=== PATIENT | female | born 1980 | race Caucasian/White ===

== ENCOUNTER 2017-05-06 11:51 | Emergency (ER) | payer OTHER, MEDICAID ==
[~2017-05-06] VITALS: Ht 152.4 cm; Wt 66.2 kg
[~2017-05-06 11:51] MED LIST: AUGMENTIN 500-1 EACH PO; CIPROFLOXIN HC2.5 M1 OTIC; FISH OIL 1,001000 M2 PO; VITAMIN D1000 UNI1 PO
[2017-05-06] MEDS ORDERED: ADVAIR 500-501 EACH INH (12:05)
[2017-05-06] MEDS ORDERED: FLONASE 0.05%50 MCG NASAL (12:06)
[2017-05-06] MEDS ORDERED: PREDNISONE50 MG PO (13:04)
[2017-05-06 13:13] VITALS: BP 123/65
== END 2017-05-06 13:14 | disposition home or self-care (01) ==
LOC: M.ERS 11:51
DX: J45.901 Unspecified asthma with (acute) exacerbation (principal); Z88.2 Allergy status to sulfonamides; Z88.5 Allergy status to narcotic agent

== ENCOUNTER 2017-09-16 21:06 | Emergency (ER) | payer OTHER, MEDICAID ==
[~2017-09-16] VITALS: Ht 152.4 cm; Wt 64.9 kg
[~2017-09-16 21:06] MED LIST changes: +ADVAIR 500-501 EACH INH; +FLONASE 0.05%50 MCG NASAL; +PREDNISONE50 MG PO
[2017-09-16] MEDS ORDERED: XANAX 0.25 MG0.25 MG (21:14)
[2017-09-16] MEDS ORDERED: MIRENA1 EACH (21:14)
[2017-09-16] MEDS ORDERED: CELEXA40 MG (21:14)
[2017-09-16] MEDS ORDERED: PHENTERMINE H37.5 MG (21:14)
[2017-09-16] MEDS ORDERED: ZYRTEC (21:14)
[2017-09-16 22:05] VITALS: BP 130/70
== END 2017-09-16 22:06 | disposition home or self-care (01) ==
LOC: M.ERS 21:06
DX: S90.112A Contusion of left great toe without damage to nail, initial encounter (principal); J45.909 Unspecified asthma, uncomplicated; Z88.2 Allergy status to sulfonamides; Z88.5 Allergy status to narcotic agent; W01.0XXA Fall on same level from slipping, tripping and stumbling without subsequent striking against object, initial encounter; Y93.89 Activity, other specified; Y92.89 Other specified places as the place of occurrence of the external cause; Y99.8 Other external cause status

== ENCOUNTER 2018-01-14 15:17 | Emergency (ER) | payer OTHER, MEDICAID ==
[~2018-01-14] VITALS: Ht 165.1 cm; Wt 56.7 kg
[~2018-01-14 15:17] MED LIST changes: +CELEXA40 MG; +MIRENA1 EACH; +PHENTERMINE H37.5 MG; +XANAX 0.25 MG0.25 MG; +ZYRTEC
[2018-01-14] MEDS ORDERED: SPIRONOLACTONE25 M1 PO (15:36)
[2018-01-14] MEDS ORDERED: IBU800 MG PO ×2 (16:24→16:25)
[2018-01-14 16:46] VITALS: BP 123/70
[2018-01-14] MEDS ORDERED: FLEXERIL PO ×2 (16:59→17:00)
== END 2018-01-14 17:15 | disposition home or self-care (01) ==
LOC: M.ERS 15:17
DX: S63.591A Other specified sprain of right wrist, initial encounter (principal); J45.909 Unspecified asthma, uncomplicated; Z88.5 Allergy status to narcotic agent; Z88.2 Allergy status to sulfonamides; W11.XXXA Fall on and from ladder, initial encounter; Y92.89 Other specified places as the place of occurrence of the external cause; Y93.89 Activity, other specified; Y99.8 Other external cause status

== ENCOUNTER 2018-10-27 14:13 | Emergency (ER) | payer OTHER, MEDICAID ==
[~2018-10-27] VITALS: Ht 152.4 cm; Wt 55.8 kg
[~2018-10-27 14:13] MED LIST changes: +FLEXERIL PO; +IBU800 MG PO; +SPIRONOLACTONE25 M1 PO
[2018-10-27 15:00] LABS: URINE BILIRUBIN NEGATIVE (Negative); URINE BLOOD NEGATIVE (Negative); URINE CLARITY CLEAR; URINE COLOR YELLOW; URINE GLUCOSE-RANDOM NEGATIVE (Negative); URINE KETONES NEGATIVE (Negative); URINE NITRITE-REFLEX NEGATIVE (Negative); URINE PROTEIN NEGATIVE (Negative); URINE SPECIFIC GRAVITY 1.025 (1.005-1.030); URINE UROBILINOGEN 0.2 E.U./dl (0.2-1.0)
[2018-10-27 15:04] LABS: URINE LEUKOCYTES-REFLEX 2+ (Negative)
[2018-10-27 15:07] LABS: CASTS None Seen /LPF (None Seen); CRYSTALS None Seen /LPF (None Seen); SQUAMOUS >10 Many /LPF (0-3); URINE RBC 3-10 Few /HPF (0-2); URINE WBC-REFLEX 6-15 Few /HPF (0-5)
[2018-10-27] MEDS ORDERED: TRAMADOL 50 MG50 MG PO (15:21)
[2018-10-27] MEDS ORDERED: MACROBID 100 M100 M1 PO (15:21)
[2018-10-27 15:45] VITALS: BP 120/53
== END 2018-10-27 15:46 | disposition home or self-care (01) ==
LOC: M.ERS 14:13
PROVIDERS: Physician Assistant
DX: N39.0 Urinary tract infection, site not specified (principal); J45.909 Unspecified asthma, uncomplicated; G43.909 Migraine, unspecified, not intractable, without status migrainosus; Z88.2 Allergy status to sulfonamides; Z88.5 Allergy status to narcotic agent

== ENCOUNTER 2020-02-16 14:42 | Emergency (ER) | payer OTHER, MEDICAID ==
[~2020-02-16] VITALS: Ht 152.4 cm; Wt 50.8 kg
[~2020-02-16 14:42] MED LIST changes: +MACROBID 100 M100 M1 PO; +TRAMADOL 50 MG50 MG PO
[2020-02-16] MEDS ORDERED: NORCO 5-325 TA1 EAC2 PO (16:34)
[2020-02-16] MEDS ORDERED: NAPROSYN500 MG PO (16:34)
[2020-02-16 16:43] VITALS: BP 123/70
== END 2020-02-16 16:44 | disposition home or self-care (01) ==
LOC: M.ERS 14:42
DX: M25.561 Pain in right knee (principal); J45.909 Unspecified asthma, uncomplicated; G43.909 Migraine, unspecified, not intractable, without status migrainosus; Z88.0 Allergy status to penicillin; Z88.2 Allergy status to sulfonamides; Z88.5 Allergy status to narcotic agent

== ENCOUNTER 2021-01-18 22:57 | Emergency (ER) | payer OTHER, MEDICAID ==
[~2021-01-18] VITALS: Ht 152.4 cm; Wt 63.5 kg
[~2021-01-18 22:57] MED LIST changes: +NAPROSYN500 MG PO; +NORCO 5-325 TA1 EAC2 PO
[2021-01-18] MEDS ORDERED: ZYRTEC10 M5 PO (23:08)
[2021-01-18] MEDS ORDERED: PROAIR HFA8.5 GM INH (23:08)
[2021-01-18] MEDS ORDERED: PROBIOTIC1 EAC5 PO (23:08)
[2021-01-19 00:43] VITALS: BP 114/70
== END 2021-01-19 00:45 | disposition short-term general hospital (02) ==
LOC: M.ERS 22:57
DX: S60.416A Abrasion of right little finger, initial encounter (principal); J45.909 Unspecified asthma, uncomplicated; G43.909 Migraine, unspecified, not intractable, without status migrainosus; Z98.890 Other specified postprocedural states; Z88.5 Allergy status to narcotic agent; Z88.0 Allergy status to penicillin; Z88.2 Allergy status to sulfonamides; X58.XXXA Exposure to other specified factors, initial encounter; Y93.89 Activity, other specified; Y92.89 Other specified places as the place of occurrence of the external cause; Y99.8 Other external cause status